=== PATIENT | female | born 1955 | race Caucasian/White ===

== ENCOUNTER → 2016-07-28 | Outpatient (CLI) | payer BC ==
--- NOTE | 2016-07-29 09:46 | CT ---
EXAM DATE: 07/28/16 PATIENT'S AGE: 61 Patient: DELILAH BIRD Facility: [place], [place] Site Site : 1955 Study: CT Abdomen/Pelvis [id number]/24/2017 9:32:17 AM Ordering Physician: ANDRZEJ Final Report: INDICATION: Esophageal cancer. Comparison: CT abdomen pelvis 01/29/2016. Technique: Contrast CT abdomen and pelvis with coronal and sagittal re-formatted images obtained. Findings : Heart size is normal. Bilateral peripheral linear opacities probably represents areas of atelectasis. No suspicious pulmonary nodules. There is a tiny 1 mm pulmonary nodule left lower lobe series image 16 unchanged from the prior study. Distal esophagus appears unremarkable. Stomach is decompressed and grossly unremarkable. Fatty infiltration of the liver. Pancreas, adrenal glands, spleen gallbladder kidneys and are unremarkable aside from tiny too small to characterize subcentimeter 6 mm hyperdense exophytic lesion right upper kidney unchanged from the prior examination on image 62. Small cortical defect in the right lower kidney. Tiny cortical calcification. No nephrolithiasis. Probable calcified uterine fibroid unchanged. Urinary bladder is unremarkable. Bowel is unremarkable. No abdominal aorta aneurysm. No pathologically enlarged adenopathy seen. Clustered changes anterior abdominal wall. No suspicious bony lesions seen. Impression: 1. No findings for metastatic disease. 2. Fatty liver. 3. Too small to characterize slightly dense lesion right upper kidney could represent a small hyperdense cyst or solid lesion unchanged from 07/25/2015. Dictated by Josefa Rashid MD @ Jul 29 2016 8:41AM (Electronic Signature) Report Signed by Proxy and Original Signed Document filed in the Medical Record. [facility]
--- NOTE | 2016-07-30 14:28 | CT ---
EXAM DATE: 07/28/16 PATIENT'S AGE: 61 Patient: DELILAH BIRD Facility: [place], [place] Site . Site : 1955 Study: CT Chest [id number]/24/2017 9:29:00 AM Ordering Physician: Alexander Jordan Final Report: Indication: Follow up malignant neoplasm of the esophagus. Comparison: [address] chest and [address] abdomen and pelvis. Technique: Noncontrast images from angle of the mandible to upper abdomen. Findings: Visualized thyroid is normal. No pathologic adenopathy in the axilla, supraclavicular, mediastinal or hilar stations. Bilateral breast implants. Dystrophic calcification along the margins. Aorta is non aneurysmal. Heart size is normal. Esophagus appears normal caliber with no asymmetric wall thickening. Low-attenuation of the liver diffusely. No adrenal mass. Small splenule inferior from the splenic hilum. Lung parenchyma is unremarkable with no significant nodule or consolidation. No interstitial thickening. Airways are patent. No pericardial or pleural effusion. No bone finding of significance. Impression: No acute cardiopulmonary disease. Hepatic steatosis. Normal caliber and thickness of the esophagus. Dictated by Alexandre Sofia MD @ Jul 30 2016 1:36PM (Electronic Signature) Report Signed by Proxy and Original Signed Document filed in the Medical Record. [facility]
== END ==
LOC: MW.DI 08:44
PROVIDERS: ATTEND Internal Medicine Hematology & Oncology
DX: C15.9 Malignant neoplasm of esophagus, unspecified (principal); K76.0 Fatty (change of) liver, not elsewhere classified
CPT/HCPCS: 71250; 71250-26; 74176; 74176-26

== ENCOUNTER 2016-12-29 10:34 | Day surgery (SDC) | payer BC ==
[~2016-12-29 10:34] MED LIST: Lactated Ringers 1,000 ML IV SCH
--- NOTE | 2016-12-29 11:08 | PCM.PREANE ---
Preanesthetic Assessment - Anesthesia/Transfusion/Family Hx Anesthesia History: Prior Anesthesia Without Reaction Other Type of Anesthesia Reaction Comment: Denies any known problem in past Family History of Anesthesia Reaction: No Transfusion History: No Prior Transfusion(s) Intubation History: Unknown - Review of Systems General: No Symptoms Pulmonary: No Symptoms Cardiovascular: No Symptoms Gastrointestinal: Abdominal Pain, Hematochezia Neurological: No Symptoms Other: Reports: None - Physical Assessment O2 Sat by Pulse Oximetry: 97 Respiratory Rate: 16 Vital Signs: Last Vital Signs Temp 36.2 C 12/29/16 10:42 Pulse 102 H 12/29/16 10:42 Resp 16 12/29/16 10:42 BP 110/73 12/29/16 10:42 Pulse Ox 97 12/29/16 10:42 Height: 1.65 m Weight: 88.451 kg ASA Class: 3 Mental Status: Alert & Oriented x3 Airway Class: Mallampati = 2 Dentition: Reports: Normal Dentition Thyro-Mental Finger Breadths: 3 Mouth Opening Finger Breadths: 3 ROM/Head Extension: Full Lungs: Clear to Auscultation, Normal Respiratory Effort Cardiovascular: Regular Rate, Regular Rhythm - Allergies Allergies/Adverse Reactions: Allergies Allergy/AdvReac Type Severity Reaction Status Date / Time Iodinated Contrast- Oral and Allergy Other Verified 04/24/15 06:55 IV Dye [Iodinated Contrast Media - IV Dye] - Blood Blood Available: No - Anesthesia Plan Pre-Op Medication Ordered: None - Acknowledgements Anesthesia Type Planned: MAC Pt an Appropriate Candidate for the Planned Anesthesia: Yes Alternatives and Risks of Anesthesia Discussed w Pt/Guardian: Yes Pt/Guardian Understands and Agrees with Anesthesia Plan: Yes PreAnesthesia Questionnaire Other HEENT History: reading glasses Cardiovascular History: Reports: High Cholesterol, Hypertension Respiratory History: Reports: Asthma, Other (See Below) Other Respiratory History: Reports 40 yr history of smoking, current use 1/2 pack per day, states may have sleep apnea but has not been diagnosed Gastrointestinal History: Reports: GERD Genitourinary History: Reports: None Musculoskeletal History: Reports: Arthritis, Fracture, Gout Other Musculoskeletal History: hx: Fracturing Right ANkle Neurological History: Reports: Migraines Psychiatric History: Reports: Anxiety, Bipolar, Depression Endocrine/Metabolic History: Reports: Obesity/BMI 30+ Other Endocrine/Metabolic History: states is prediabetic Oncologic (Cancer) History: Reports: Colon (hemicolectomy 07/20 for colon cancer ) Other Dermatologic History: states has sores on both arms - Past Surgical History Head Surgeries/Procedures: Reports: None HEENT Surgical History: Reports: Other (See Below) Other HEENT Surgeries/Procedures: cyst removed right eye GI Surgical History: Reports: Colon, Colonoscopy, Other (See Below) Other GI Surgeries/Procedures: Tubular Adenoma of Colon, hx of colon surgery for colorectal cancer Female Surgical History: Reports: Breast Biopsy, Breast Reconstruction ( enlargement) Other Female Surgeries/Procedures: Right breast lumpectomy, Bilateral breast augmentation with implants - SUBSTANCE USE Smoking Status *Q: Current Every Day Smoker Tobacco Use Within Last Twelve Months: Cigarettes Other Tobacco Use Within Last Twelve Months: Current everyday smoker, trying to quit, down to 1/2 pk per day Second Hand Smoke Exposure: No Days Per Week of Alcohol Use: 7 Number of Drinks Per Day: 5 Total Drinks Per Week: 35 Recreational Drug Use History: No - HOME MEDS Home Medications: Home Meds Cholecalciferol (Vitamin D3) [Vitamin D3] 2,000 units PO DAILY 10/19/14 [History ] Lisinopril 20 mg PO DAILY 10/19/14 [History] Omeprazole 40 mg PO DAILY 10/19/14 [History] Sertraline HCl 100 mg PO DAILY 10/19/14 [History] amLODIPine [Norvasc] 2.5 mg PO DAILY 10/19/14 [History] atorvaSTATin Calcium [Atorvastatin Calcium] 40 mg PO DAILY 10/19/14 [History] Allopurinol [Zyloprim] 1 tab PO DAILY 04/19/15 [History] Acetaminophen/Diphenhydramine [Tylenol Pm Ex-Strength Caplet] 1 tab PO BEDTIME PRN 12/25/16 [History] Albuterol [Proventil HFA] 2 puff INH ASDIRECTED PRN 12/25/16 [History] Budesonide/Formoterol Fumarate [Symbicort 160-4.5 Mcg Inhaler] 2 inhalation INH DAILY 12/25/16 [History] Chlorthalidone 25 mg PO DAILY 12/25/16 [History] Magnesium Oxide [Magnesium] 650 mg PO DAILY 12/25/16 [History] Varenicline Tartrate [Chantix] 1 tab PO BID 12/25/16 [History] - CURRENT (IN HOUSE) MEDS Current Meds: Current Medications Lactated Ringer's (Ringers, Lactated) 1,000 mls @ 125 mls/hr IV ASDIRECTED [facility] Last Admin: 12/29/16 10:47 Dose: 125 mls/hr
[2016-12-29] MEDS ORDERED: Propofol 200 MG/20 ML SDV ONE ×2 (12:27→13:07)
[2016-12-29] MEDS ORDERED: fentaNYL 100 MCG/2 ML SDV ONE (12:27)
[2016-12-29] MEDS ORDERED: Midazolam 1 MG/ML 2 ML SDV ONE (12:27)
[2016-12-29] MEDS ORDERED: Phenylephrine/Normal Saline 100 MCG/ML 10 ML Syringe ONE (12:59)
[2016-12-29] MEDS ORDERED: ePHEDrine 50 MG/ML SDV ONE (13:12)
--- NOTE | 2016-12-29 13:38 | PCM.OPNOTE ---
- General Post-Op/Procedure Note Date of Surgery/Procedure: 12/29/16 Operative Procedure(s): Esophagogastroduodenoscopy with biopsy. Colonoscopy with cold ascending colon and sigmoid colon polypectomies. Pre Op Diagnosis: Abdominal bloating. Epigastric pain. Unexplained weight loss. Rectal bleeding. Personal history of colon cancer. Post-Op Diagnosis: Acute gastritis. Ascending colon and sigmoid polyps. Anesthesia Technique: MAC (ASA III) Primary Surgeon: Kofi Can Licensing Analyst: Nasrin Castle Condition: Good Free Text/Narrative:: Dictation [id number] CPT CODE 75373/68613
[2016-12-29] MEDS ORDERED: Lactated Ringers 1,000 ML IV SCH (13:45)
[2016-12-29 14:06] VITALS: BP 93/58
--- NOTE | 2016-12-29 19:06 | OR ---
SURGEON: Kofi Can M.D. DATE OF PROCEDURE: 12/29/2016 OPERATION PERFORMED: Colonoscopy with cold ascending colon and sigmoid colon polypectomy. ANESTHESIA: MAC. ASA CLASSIFICATION: III. PREOPERATIVE DIAGNOSES: 1. Unexplained weight loss. 2. Rectal bleeding. 3. History of colon cancer. POSTOPERATIVE DIAGNOSIS: Two small polyps, one in the ascending colon and the other in the sigmoid colon. DESCRIPTION OF PROCEDURE: The patient was now positioned in the left lateral decubitus position having completed esophagogastroduodenoscopy. The colonoscope was inserted into the rectum and advanced with minimal difficulty to the cecum. The colonoscope was retroflexed in the cecum to visualize the ascending colon from below, then straightened and slowly withdrawn. One polyp was encountered in the ascending colon and removed with the cold biopsy forceps. The remainder of the ascending colon, hepatic flexure, transverse colon, splenic flexure, and descending colon showed no tumors, polyps, diverticula, or angiodysplastic changes. A second small polyp was encountered in the sigmoid colon and likewise removed with the cold biopsy forceps. The site of previous resection was identified. The tattoo was clearly visualized. No polyps were encountered in the region of the previous resection. Once the colonoscope was withdrawn to the rectum, it was retroflexed to visualize the anal orifice from above. No acute hemorrhoidal changes were noted. The colonoscope was then straightened, the rectum aspirated, and the colonoscope removed. The patient tolerated the procedure well and was taken to recovery room in stable condition. GURDEEP / ZAID /[id number]
--- NOTE | 2016-12-29 19:15 | OR ---
SURGEON: Kofi Can M.D. DATE OF PROCEDURE: 12/29/2016 OPERATION PERFORMED: Esophagogastroduodenoscopy with biopsy. ANESTHESIA: MAC. ASA CLASSIFICATION: III. PREOPERATIVE DIAGNOSIS: Abdominal bloating with epigastric pain. POSTOPERATIVE DIAGNOSIS: Acute gastritis and duodenitis. DESCRIPTION OF PROCEDURE: The patient was taken to the endoscopy room, positioned on the endoscopy table in the supine position. Time-out was called for appropriate identification of the patient and procedure. Monitored anesthesia care was provided. The bite- block was placed between the patient's teeth. The gastroscope was inserted through the bite-block into the mouth and advanced without difficulty through the esophagus and stomach into the duodenum, where examination was carried out in a retrograde fashion. The duodenum does not show any acute inflammatory changes or ulcerations. The pyloric channel does show an acute gastritis/duodenitis. Superficial ulcers were identified. No deep ulcer craters are present. No bleeding was noted. The scope was withdrawn into the stomach, which also shows a mild chronic gastritis. Antral biopsies were obtained to look for the presence of Helicobacter pylori. The gastroscope was retroflexed to visualize the proximal stomach. No ulcerations were noted. No inflammatory changes were noted. The gastroscope was then straightened, the stomach aspirated, and the scope was slowly withdrawn. The GE junction was well defined and shows no acute inflammatory changes or ulcerations. No tumors were noted within the esophagus. The esophagus demonstrated good contractility. The vocal cords were visualized as the scope was withdrawn and noted to move symmetrically. The gastroscope was then removed with the patient having tolerated the procedure well. Following colonoscopy, she was taken to recovery room in stable condition. GURDEEP MAR /[id number]
== END 2016-12-29 14:05 | disposition home or self-care (01) ==
LOC: MW.SDS 10:34
PROVIDERS: ATTEND Surgery
DX: K29.50 Unspecified chronic gastritis without bleeding (principal); D12.2 Benign neoplasm of ascending colon; D12.5 Benign neoplasm of sigmoid colon; M19.90 Unspecified osteoarthritis, unspecified site; F31.9 Bipolar disorder, unspecified; K21.9 Gastro-esophageal reflux disease without esophagitis; M10.9 Gout, unspecified; I10 Essential (primary) hypertension; E78.00 Pure hypercholesterolemia, unspecified; G47.33 Obstructive sleep apnea (adult) (pediatric); E66.9 Obesity, unspecified; F17.210 Nicotine dependence, cigarettes, uncomplicated; J45.909 Unspecified asthma, uncomplicated; Z91.041 Radiographic dye allergy status; Z85.038 Personal history of other malignant neoplasm of large intestine; Z90.49 Acquired absence of other specified parts of digestive tract; Z98.890 Other specified postprocedural states; Z79.899 Other long term (current) drug therapy; Z79.51 Long term (current) use of inhaled steroids; Z68.32 Body mass index [BMI] 32.0-32.9, adult
CPT/HCPCS: 43239; 45380; J2250; J3010; J7120; 00740; 88305; 88312; J2704